=== PATIENT | male | born 1980 | race Two or more races ===

== ENCOUNTER 2018-03-30 17:44 | Emergency (ER) | payer SELFPAY ==
[~2018-03-30] VITALS: Ht 185.4 cm; Wt 84.0 kg
[2018-03-30 17:46] VITALS: BP 122/70
[2018-03-30 18:25] LABS: BASOPHILS % (AUTO) 0 % (0-1); EOSINOPHILS # (AUTO) 0.12 x10^3/uL (0-0.4); EOSINOPHILS % (AUTO) 1 % (1-7); LYMPHOCYTES # (AUTO) 1.53 x10^3/uL (1-3.4); LYMPHOCYTES % (AUTO) 13 % (22-44); MD NO; MEAN CORPUSCULAR HGB CONC 34.3 g/dL (33.2-36.2); MEAN CORPUSCULAR VOLUME 93.3 fL (81-97); MEAN PLATELET VOLUME 8.5 fL (7.4-10.4); MONOCYTES # (AUTO) 0.75 x10^3/uL (0.2-0.8); MONOCYTES % (AUTO) 6 % (2-9); NEUTROPHILS # (AUTO) 9.35 x10^3/uL (1.8-6.8); NEUTROPHILS % (AUTO) 80 % (42-75); PLATELET COUNT 216 x10^3/uL (130-400); RED BLOOD COUNT 4.67 x10^6/uL (4.38-5.82)
[2018-03-30 18:34] LABS: ANION GAP 9 mmol/L (5-15); CALCIUM 8.6 mg/dL (8.5-10.1); CHLORIDE 106 mmol/L (98-107); CREATININE 0.88 mg/dL (0.7-1.3)
[2018-03-30] MEDS ORDERED: DEXAMETHASONE 4 MG/ML, 1ML ONE (18:45)
[2018-03-30] MEDS ORDERED: DEXAMETHASONE 4 MG/ML, 1ML IM ONE (19:00)
== END 2018-03-30 19:01 | disposition home or self-care (01) ==
LOC: ED 18:35
DX: J36 Peritonsillar abscess (principal)
CPT/HCPCS: 36415; 80048; 85025; 87081; 87880; 96372; 99284; J1100